=== PATIENT | male | born 1950 | race Asian ===

== ENCOUNTER 2018-07-07 13:51 | Outpatient (CLI) | payer MEDICARE, OTHER ==
[2018-07-07 14:20] LABS: CALCIUM 8.7 mg/dL (8.5-10.3); CREATININE 1.2 mg/dL (0.6-1.2)
== END 2018-07-07 13:52 | disposition home or self-care (01) ==
LOC: LAB 13:51
PROVIDERS: ATTEND Registered Nurse
DX: Z01.818 Encounter for other preprocedural examination (principal); I10 Essential (primary) hypertension; E11.9 Type 2 diabetes mellitus without complications; I44.7 Left bundle-branch block, unspecified; K40.90 Unilateral inguinal hernia, without obstruction or gangrene, not specified as recurrent
CPT/HCPCS: 36415; 80048; 93005

== ENCOUNTER 2018-07-13 06:12 | Day surgery (SDC) | payer MEDICARE, OTHER ==
[2018-07-13] MEDS ORDERED: ceFAZolin 2 GM/50 ML 2 GM/50 ML BAG IV ONE (06:25)
[2018-07-13] MEDS ORDERED: LACTATED RINGERS 1,000 ML IV ONE (06:41)
--- NOTE | 2018-07-13 06:59 | ANESTHESIA ---
Pre-Anesthesia VS, & Labs - Diagnosis left inguinal hernia - Procedure left inguinal hernia repair Vital Signs: Temp Pulse Resp BP Pulse Ox 36.8 C 63 16 148/89 H 98 07/13/18 06:20 07/13/18 06:20 07/13/18 06:20 07/13/18 06:20 07/13/18 06:20 Height 5 ft 5 in Weight (kg) 75.8 kg Body Mass Index 28.3 - Lab Results Current Lab Results: Laboratory Tests 07/13/18 06:40: POC Whole Bld Glucose 103 H Lab results reviewed: Yes Home Medications and Allergies Home Medications: Ambulatory Orders Fluticasone/Salmeterol [Advair 500-50 Diskus] 1 each IH DAILY 07/05/18 Lisinopril 10 mg PO DAILY 07/05/18 Metformin HCl [Metformin HCl ER] 500 mg PO DAILY 07/05/18 Pantoprazole Sodium [Protonix] 40 mg PO DAILY 07/05/18 Albuterol Sulfate [Proair Hfa] 1 puffs PO Q6HR 06/17/15 Atorvastatin Calcium [Lipitor] 40 mg PO DAILY 06/17/15 Cetirizine HCl [Zyrtec] 10 mg PO DAILY 06/17/15 Montelukast [Singulair] 10 mg PO DAILY 06/17/15 Sildenafil Citrate [Viagra] 100 mg PO ONCE PRN 06/17/15 Fluticasone/Salmeterol [Advair 500-50 Diskus] 1 each IH DAILY 07/05/18 Lisinopril 10 mg PO DAILY 07/05/18 Metformin HCl [Metformin HCl ER] 500 mg PO DAILY 07/05/18 Pantoprazole Sodium [Protonix] 40 mg PO DAILY 07/05/18 Allergies/Adverse Reactions: Allergies Allergy/AdvReac Type Severity Reaction Status Date / Time No Known Drug Allergies Allergy Verified 06/16/15 22:07 Anes History & Medical History - Anesthetic History Anesthesia Complications: reports: No previous complications Family history of Anesthesia Complications: Denies Family history of Malignant Hyperthermia: Denies - Medical History Cardiovascular: reports: Hypertension, High cholesterol, Murmur, Arrhythmia Pulmonary: reports: Asthma, Shortness of breath, Other Gastrointestinal: reports: GERD, Ulcers, Hiatal hernia Urinary: reports: Nocturia Endocrine/Autoimmune: reports: Type 2 diabetes Smoking Status: Never smoker - Surgical History General: Bowel surgery Cardiothoracic: Cardiac catheterization Exam General: Alert, Oriented x3, Cooperative, No acute distress Dental: WNL Mouth Openin Fingerbreadth Neck Mobility: Normal Mallampati classification: I Thyromental Distance: greater than 6 cm Respiratory: Lungs clear, Normal breath sounds, No respiratory distress, No accessory muscle use Cardiovascular: Regular rate, Normal S1, Normal S2, No murmurs Mental/Cognitive Status: Alert/Oriented X3, Normal for patient Plan Anesthesia Type: General Consent for Procedure(s) Verified and Reviewed: Yes Code Status: Attempt Resuscitation ASA classification: 2-Mild systemic disease Is this case an emergency?: No
[2018-07-13] MEDS ORDERED: BUPIVACAINE 0.5% PF 30 ML VIAL ONE (07:01)
[2018-07-13] MEDS ORDERED: DEXAMETHASONE 4 MG/ML VIAL IVP ONE (07:30)
[2018-07-13] MEDS ORDERED: MIDAZOLAM 2 MG/2 ML VIAL IVP ONE (07:30)
[2018-07-13] MEDS ORDERED: LIDOCAINE-MPF 2% 5 ML VIAL IM ONE (07:30)
[2018-07-13] MEDS ORDERED: PROPOFOL 200 MG/20 ML VIAL IVP ONE (07:30)
[2018-07-13] MEDS ORDERED: fentaNYL 100 MCG/2 ML VIAL IVP ONE (07:30)
[2018-07-13] MEDS ORDERED: ONDANSETRON 4 MG/2 ML VIAL IVP ONE (07:30)
[2018-07-13] MEDS ORDERED: ACETAMINOPHEN 1,000 MG/100 ML 100 ML IV ONE (07:30)
[2018-07-13] MEDS ORDERED: BUPIVACAINE 0.5%-EPI 1:200000 PF 30 ML VIAL SUBQ ONE ×2 (07:57→08:29)
[2018-07-13] MEDS ORDERED: HYDROcod/ACETAM 5/325 MG TABLET PO PRN (08:43)
[2018-07-13] MEDS ORDERED: ONDANSETRON 4 MG/2 ML VIAL IVP PRN (08:43)
[2018-07-13] MEDS ORDERED: HYDROmorphone 0.5 MG/0.5 ML SYRINGE IVP PRN (08:43)
--- NOTE | 2018-07-13 08:54 | OPERATIVE REPORT ---
Operative Report - General Procedure Date: 07/13/18 Planned Procedure: Left inguinal herniorrhaphy Pre-Op Diagnosis: Large left inguinal hernia Procedure Performed: Large left indirect inguinal herniorrhaphy ([place] repair) and excision cord li micah Post Op Diagnosis: Large left indirect hernia and large cord lipoma - Procedure Note Primary Surgeon: Bobby Finney MD Anesthesia Provider: Axel Whitmore CRNA Anesthesia Technique: General ET tube IV Fluids (mL): 600 Estimated Blood Loss (mL): 10 Drain/Tube Type: Other (None.) Complications: None. - Other Other Information/Narrative: OPERATIVE DESCRIPTION/REPORT: After verbal and written informed consent was obtained detailing the risks of infection, bleeding requiring transfusion with its risks, nerve injury, and , and after I met with the patient confirming the surgery and the site of the surgery and after initialing the site of the surgery with a surgical marker, the patient was brought to the operative suite and placed supine on the operating table. Great care was taken to avoid pressure points to prevent pressure necrosis or nerve injury. Monitoring devices were applied along with TEDs and pneumatic compressive stockings (to prevent DVT). The patient received preoperative antibiotics for surgical prophylaxis. Axel Whitmore CRNA sedated and anesthetized the patient for the entire procedure. The patient was prepped and draped in the usual sterile manner. With the patient draped my initials were clearly visible. A "time in" then confirmed that the patient was identified with 3 identifiers (name, date and medical record number), the history and physical was in the chart, the signed consent confirming the procedure was in the chart, the patient was in the correct position, the aforementioned prophylactic measures were in place or given, we had the correct personnel and equipment to complete the procedure and that anesthesia, surgery and nursing were given an opportunity to express any concerns. With the agreement of everyone in the room, we proceeded with the operation. A standard inguinal incision was made and dissection was carried down to the external oblique aponeurosis using a combination of Metzenbaum scissors and Bovie electrocautery. The external oblique aponeurosis was cleared of overlying adherent tissue, and the external ring was delineated. The external oblique was the incised with a scalpel and this incision was carried out to the external ring using Metzenbaum scissors. Having exposed the inguinal canal, the cord structures were from the canal using blunt dissection, and a Cortney drain was placed around the cord structures at the level of the pubic tubercle. This Cortney drain was then used to retract the cord structures as needed. Adherent cremasteric muscle was dissected free from the cord using Bovie electrocautery. Dissection along the cord structures found a lipoma that was dissected back to the internal ring, ligated with a 3-0 Vicryl, transected, the stump cauterized and allowed to retract back into the abdomen. The cord was then explored using a combination of sharp and blunt dissection, and the sac was found anteromedially to the cord structures. The sac was dissected free from the cord structures using a combination of blunt dissection and Bovie electrocautery. Once preperitoneal fat was encountered, the dissection stopped and the sac was high ligated with a 2-0 PDS, transected, the stump cauterized and allowed to retract back into the abdominal cavity and an extra-large Bard Perfix plug (Ref# [id number], Lot#[id number], use date 2023-02-10) inserted into the internal ring. The plug was secured to the internal ring by interrupted 2-0 PDS sutures. The Bard Perfix enlay patch was then placed on the floor of the inguinal canal and secured in place using interrupted 0 PDS sutures to the conjoined tendon superiorly, pubic tubercle medially, and shelving edge inferiorly. By reinforcing the floor with the enlay patch, a new internal ring was thus formed. The Cortney drain was removed. The wound was then irrigated using sterile saline, and hemostasis was obtained using Bovie electrocautery. The incision in the external oblique was approximated using a 3-0 Vicryl in a running fashion, thus reforming the external ring. The fascia and skin was then injected with the 1/2% marcaine for exterminator termite pain control. The skin incision was approximated with 4-0 Monocryl in a subcuticular fashion. The skin was cleaned and Dermabond was applied. At this point a time out was performed that confirmed that all the counts were correct, the procedure that was performed, the blood loss, the IV fluids administered, and the patients condition. A dressing was then applied. Gentle downward traction ensured that the testes were well seated in the scrotum. Having tolerated the procedure well, the patient was taken to short stay in good and stable condition. Sunita disclaimer: This document was created in part using voice recognition technology. Because of the inherent limitations of the system ([employer]'s [employer] user manual states that the licensee understands that speech recognition is a statistical pr ocess and that recognition errors are inherent in the process), occasional same sounding word substitutions and grammatical errors do occur and persist despite proofreading. Please read this document for context.
[2018-07-13 10:41] VITALS: BP 136/82
== END 2018-07-13 06:13 | disposition home or self-care (01) ==
LOC: SDS 06:12
PROVIDERS: ATTEND Surgery
PROC: 0VBG0ZZ Excision of Left Spermatic Cord, Open Approach (ICD-10-PCS; 2018-07-13)
PROC: 0YU60JZ Supplement Left Inguinal Region with Synthetic Substitute, Open Approach (ICD-10-PCS; principal; 2018-07-13 07:30)
DX: K40.90 Unilateral inguinal hernia, without obstruction or gangrene, not specified as recurrent (principal); D17.6 Benign lipomatous neoplasm of spermatic cord; I10 Essential (primary) hypertension; E11.9 Type 2 diabetes mellitus without complications; J45.909 Unspecified asthma, uncomplicated
CPT/HCPCS: 49505; 55520; C1781; J0690; J7120

== ENCOUNTER 2022-06-19 18:07 | Outpatient (CLI) | payer MEDICARE, OTHER ==
[2022-06-19 20:27] LABS: CALCIUM 8.4 mg/dL (8.5-10.3); POTASSIUM 3.8 mmol/L (3.5-5.0)
== END 2022-06-19 18:08 | disposition home or self-care (01) ==
LOC: LAB.N 18:07
PROVIDERS: ATTEND Internal Medicine Cardiovascular Disease
DX: I44.7 Left bundle-branch block, unspecified (principal); I42.9 Cardiomyopathy, unspecified; I50.41 Acute combined systolic (congestive) and diastolic (congestive) heart failure
CPT/HCPCS: 36415; 80048; 83880